=== PATIENT | male | born 2000 | race Asian ===

== ENCOUNTER 2020-05-05 16:57 | Emergency (ER) | payer SELFPAY ==
[2020-05-05 17:22] VITALS: Ht 170.2 cm
[2020-05-05 18:23] VITALS: BP 123/82
== END 2020-05-05 18:23 | disposition home or self-care (01) ==
LOC: ED 16:57
DX: H61.22 Impacted cerumen, left ear (principal); H60.92 Unspecified otitis externa, left ear